=== PATIENT | female | born 1990 ===

== ENCOUNTER 2016-09-17 20:42 | Emergency (ER) | payer OTHER ==
--- NOTE | 2016-09-17 22:38 | ED ORDER SUMMARY ---
..... Patient: CHARMAINE NEWTON OrderSheet [facility] VisitID: [id number] [place] [address] 26y, F Registration Date/Time: 09/17/2016 ORDER SHEET Weight: 58.9 kg (estimated) Allergies: Vicodin GENERAL ORDERS: CBC w Diff Urgent (21:17 09/17/2016 MWinterer R.N. per protocol) (Ack 21:19 AMcQuoid ER Tech1) (21:19 AMcQuoid ER Tech1) CMP Urgent (21:17 09/17/2016 MWinterer R.N. per protocol) (Ack 21:19 AMcQuoid ER Tech1) (21:19 AMcQuoid ER Tech1) MEDICATION ORDERS: IV FLUIDS: ORDER SHEET NOTES: [Electronically signed by Elli Ashley MD (18:44 09/20/2016)] [Electronically signed by Jarod Doll R.N. (11:05 09/23/2016)] [Electronically locked/signed by Jarod Doll R.N. (11:05 09/23/2016)]
--- NOTE | 2016-09-17 22:38 | ED CLINICAL REPORT ---
Clinical Report - Physicians/Mid Levels [facility] [address] [place] [address] 09/17/2016 20:42 Patient: CHARMAINE NEWTON Time Seen: 21:14. Arrived- By private vehicle. Historian- patient. HISTORY OF PRESENT ILLNESS Chief Complaint: VAGINAL BLEEDING. This started 9 days ago (pt is 9 days post-) and still present but is improving. The symptoms are described as mild. Modifying factors. Not worsened by anything. Not relieved by anything. The patient has had abnormal bleeding. No abdominal pain, pelvic pain, vaginal pain, low back pain or flank pain. No pain with urination, urinary frequency or urgency of urination. Not sexually active. (Patient states she passed a clot about the size of a golf ball 3 or 4 days ago. She states that since then she has been having some bleeding but she cannot quantify how much. When asked to many pads she is using, she states does not know. Patient states that she did not receive any care because she drank alcohol throughout her . However she is now in treatment. Patient states she is bottle feeding her baby. Patient states she gave to the baby vaginally. She is not sure how far along she was in the baby was born because she did not receive care. Patient denies shortness of breath or dizziness. She does states she feels tired but she has been up at the baby a lot. Patient denies fevers or abdominal pain.). Denies current . Similar symptoms previously: None. Recent medical care: The patient was seen recently by a health care provider. ( Patient states she gave to her baby at [facility]. She was admitted for 2 days afterward. Patient states there were no complications with the or following.). REVIEW OF SYSTEMS No nausea, vomiting, diarrhea, black stools or headache. No fever, chills, anorexia, eye discomfort or sore throat. No cough, difficulty breathing, chest pain, skin rash or enlarged lymph nodes. No joint pain. All systems otherwise negative, except as recorded above. PAST HISTORY Problems: . CVA - Cerebrovascular Accident. Pelvic Inflammatory Disease. Immunizations. LNMP - Last Normal Menstrual Period. Additional Surgeries: . Medications: None. Allergies: Vicodin.(hives). SOCIAL HISTORY Smoker- current status unknown. Alcohol use. No drug use. ADDITIONAL NOTES The nursing notes have been reviewed. PHYSICAL EXAM Vital Signs: 09/17/2016 20:53 BP: 125/76. HR: 89. RR: 18. O2 saturation: 100%. Temp: 97.6 F. Pain level now: 11/14. Have been reviewed. Appearance: Alert. Oriented X3. No acute distress. HEENT: Normal external inspection. Neck: Neck supple. CVS: Heart sounds normal. Respiratory: No respiratory distress. Breath sounds normal. Abdomen: Soft and nontender. Back: Normal external inspection. No CVA tenderness. Skin: Skin warm and dry. Normal skin color. No rash. Normal skin turgor. Extremities: Extremities nontender. No lower extremity edema. Neuro: Mood/affect normal. No motor deficit. No sensory deficit. (Grossly oriented.). LABS, X-RAYS, AND EKG Pulse Oximetry: 09/17/2016 20:53 O2 saturation: 100%. (FIO2 - room air). Interpretation: normal. PROGRESS AND PROCEDURES Course of Care: I did discuss with the patient that her vaginal bleeding sounds normal considering that she is 9 days . Patient was hemodynamically stable in the emergency department. Patient counseled in person regarding the patient's stable condition and diagnosis. Old medical records reviewed. Disposition: Discharged. Condition: stable. CLINICAL IMPRESSION Moderate vaginal bleeding. (Post-). INSTRUCTIONS Drink plenty of fluids. (The bleeding you are describing is normal after giving . This will usually continue for 4-6 weeks, but gradually improve (though you may have occasional increases in bleeding). Your exam shows a moderate amount of blood, but no evidence of a concerning amount of blood loss.). Warnings: GENERAL WARNINGS: Return or contact your physician immediately if your condition worsens or changes unexpectedly, if not improving as expected, or if other problems arise. Follow-up: Follow up with your doctor as scheduled. Understanding of the discharge instructions verbalized by patient. (Electronically signed by Elli Ashley MD 09/20/2016 18:44)
--- NOTE | 2016-09-17 22:38 | ED NURSING NOTES ---
Clinical Report - Nurses [facility] [address] [place] [address] 09/17/2016 20:42 Patient: CHARMAINE NEWTON TRIAGE Acuity: LEVEL 3. Chief Complaint: VAGINAL BLEEDING. Alert. No acute distress. SEPSIS SCREEN: Sepsis Screen. Negative (no infection suspected/documented). --20:58 Luz Elena Gandhi R.N. 20:53 09/17/16. BP: 125/76. HR: 89. RR: 18. O2 saturation: 100% on room air. Temp: 97.6 F (oral). Pain level now: 11/14. --20:58 Luz Elena Gandhi R.N. Weight: 58.9 kg estimated. Height/Length: 61 inches Per Patient. BMI: 24.5. --20:57 Luz Elena Gandhi R.N. Medications None. --20:57 Luz Elena Gandhi R.N. Medication/allergy information source: the patient. --20:58 Luz Elena Gandhi R.N. Allergies Vicodin.(hives) --20:57 Luz Elena Gandhi R.N. History Arrived by private vehicle. Historian: patient. Accompanied by (sister in law dropped off). Onset. (4 days ago). ( Pt reports she had a baby on September 08, and had been passing clots since the 13 of September.). PAST MEDICAL HX: Immunizations: status is unknown. Last normal menstrual period- Jan 2016. SOCIAL HX: Current every day light tobacco smoker (cigarette)- less than 1/2 a pack per day. No alcohol use or drug use. FALL RISK ASSESSMENT: Fall risk assessment completed. No fall risk identified. NUTRITIONAL RISK ASSESSMENT: The nutritional risk assessment revealed no deficiencies. FUNCTIONAL ASSESSMENT: Functional assessment: no impairments noted. LEARNING NEEDS ASSESSMENT: The learning needs assessment revealed no barriers. SKIN INTEGRITY ASSESSMENT: Skin integrity risk assessment completed. No skin integrity risk identified. --20:58 Luz Elena Gandhi R.N. PROBLEMS: CVA - Cerebrovascular Accident. Fall. Contusion. Pelvic Inflammatory Disease. Abdominal Pain. Immunizations. --20:58 Luz Elena Gandhi R.N. ADDITIONAL SURGERIES: . --20:58 Luz Elena Gandhi R.N. Assessment GENERAL / NEURO / PSYCH: Alert. Oriented X 4. Appears in no acute distress. Patient appears calm and cooperative. RESPIRATORY: Respirations not labored. CVS: Capillary refill less than 2 seconds. GI / : Abdomen soft and nontender. SKIN: Mucous membranes are pink. Skin is warm and dry. --20:58 Luz Elena Gandhi R.N. Interventions ID band on patient. To treatment room. --20:58 Luz Elena Gandhi R.N. PHYSICAL ASSESSMENT 20:58 09/17/16. Ambulatory to room. GENERAL / NEURO / PSYCH: Alert. Oriented X 4. Appears in no acute distress. HEENT: No facial asymmetry noted. Mucous membranes are pink. RESPIRATORY: Respirations not labored. CVS: Capillary refill less than 2 seconds. Pulses within normal limits. GI / : Abdomen soft. SKIN: Skin intact. Skin is warm and dry. Normal skin turgor. --20:59 Luz Elena Gandhi R.N. NURSING PROGRESS NOTES 20:59 09/17/16. Patient gowned. Two patient identifiers checked. Call light placed in reach. Bed placed in lowest position. Brakes of bed on. Patient ready for evaluation- chart flagged and ED physician and PA notified. --20:59 Lzu Elena Gandhi R.N. 21:13 09/17/2016 Site #1 started via IV in the right forearm with an 20g angiocath, with aseptic technique and good blood return; one attempt. Blood drawn: rainbow set. Labeled in the presence of the patient and sent to the lab. Saline lock flushed with 10 mL saline. --21:18 Luz Elena Gandhi R.N. 22:32 09/17/16. Care transferred and report given (Janett ED RN). --22:32 Luz Elena Gandhi R.N. 22:37 09/17/16. Care transferred and report received (Luz Elena Campbell EDRN). --22:37 Jarod Doll R.N. PELVIC EXAM: Pelvic exam performed by ED physician. Assisted by one nurse. Preparation: pelvic tray; patient placed in lithotomy position. Procedure: speculum and bimanual exam. Light amount of dark vaginal bleeding noted with clots. No genital lesions noted. No vaginal discharge noted. No rectal exam performed. No specimens collected. Status post-procedure: she was stable. Total time of assist / procedure: 15 minutes. --22:37 Jarod Doll R.N. DISPOSITION / DISCHARGE 23:03 09/17/16. Departure time: 2300. Condition at departure: unchanged and stable. No learning barriers present. Discharge instructions provided and reviewed with the patient. Patient verbalized understanding. Written instructions provided in Yoruba. The patient was discharged by the physician. She was discharged home. She left the Emergency Department ambulatory and via private vehicle. Patient driving. --23:03 Jarod Doll R.N. 23:01 09/17/16. BP: 131/88. HR: 83. RR: 16. O2 saturation: 100% on room air. Pain level now 08/14. --23:03 Jarod Doll R.N. Locked/Released at 09/23/2016 11:05 by Jarod Doll R.N.
--- NOTE | 2016-09-17 22:38 | ED CLINICAL REPORT ---
Clinical Report - Physicians/Mid Levels [facility] [address] [place] [address] 09/17/2016 20:42 Patient: CHARMAINE NEWTON Time Seen: 21:14. Arrived- By private vehicle. Historian- patient. HISTORY OF PRESENT ILLNESS Chief Complaint: VAGINAL BLEEDING. This started 9 days ago (pt is 9 days post-) and still present but is improving. The symptoms are described as mild. Modifying factors. Not worsened by anything. Not relieved by anything. The patient has had abnormal bleeding. No abdominal pain, pelvic pain, vaginal pain, low back pain or flank pain. No pain with urination, urinary frequency or urgency of urination. Not sexually active. (Patient states she passed a clot about the size of a golf ball 3 or 4 days ago. She states that since then she has been having some bleeding but she cannot quantify how much. When asked to many pads she is using, she states does not know. Patient states that she did not receive any care because she drank alcohol throughout her . However she is now in treatment. Patient states she is bottle feeding her baby. Patient states she gave to the baby vaginally. She is not sure how far along she was in the baby was born because she did not receive care. Patient denies shortness of breath or dizziness. She does states she feels tired but she has been up at the baby a lot. Patient denies fevers or abdominal pain.). Denies current . Similar symptoms previously: None. Recent medical care: The patient was seen recently by a health care provider. ( Patient states she gave to her baby at [facility]. She was admitted for 2 days afterward. Patient states there were no complications with the or following.). REVIEW OF SYSTEMS No nausea, vomiting, diarrhea, black stools or headache. No fever, chills, anorexia, eye discomfort or sore throat. No cough, difficulty breathing, chest pain, skin rash or enlarged lymph nodes. No joint pain. All systems otherwise negative, except as recorded above. PAST HISTORY Problems: . CVA - Cerebrovascular Accident. Pelvic Inflammatory Disease. Immunizations. LNMP - Last Normal Menstrual Period. Additional Surgeries: . Medications: None. Allergies: Vicodin.(hives). SOCIAL HISTORY Smoker- current status unknown. Alcohol use. No drug use. ADDITIONAL NOTES The nursing notes have been reviewed. PHYSICAL EXAM Vital Signs: 09/17/2016 20:53 BP: 125/76. HR: 89. RR: 18. O2 saturation: 100%. Temp: 97.6 F. Pain level now: 11/14. Have been reviewed. Appearance: Alert. Oriented X3. No acute distress. HEENT: Normal external inspection. Neck: Neck supple. CVS: Heart sounds normal. Respiratory: No respiratory distress. Breath sounds normal. Abdomen: Soft and nontender. Back: Normal external inspection. No CVA tenderness. Skin: Skin warm and dry. Normal skin color. No rash. Normal skin turgor. Extremities: Extremities nontender. No lower extremity edema. Neuro: Mood/affect normal. No motor deficit. No sensory deficit. (Grossly oriented.). LABS, X-RAYS, AND EKG Pulse Oximetry: 09/17/2016 20:53 O2 saturation: 100%. (FIO2 - room air). Interpretation: normal. PROGRESS AND PROCEDURES Course of Care: I did discuss with the patient that her vaginal bleeding sounds normal considering that she is 9 days . Patient was hemodynamically stable in the emergency department. Patient counseled in person regarding the patient's stable condition and diagnosis. Old medical records reviewed. Disposition: Discharged. Condition: stable. CLINICAL IMPRESSION Moderate vaginal bleeding. (Post-). INSTRUCTIONS Drink plenty of fluids. (The bleeding you are describing is normal after giving . This will usually continue for 4-6 weeks, but gradually improve (though you may have occasional increases in bleeding). Your exam shows a moderate amount of blood, but no evidence of a concerning amount of blood loss.). Warnings: GENERAL WARNINGS: Return or contact your physician immediately if your condition worsens or changes unexpectedly, if not improving as expected, or if other problems arise. Follow-up: Follow up with your doctor as scheduled. Understanding of the discharge instructions verbalized by patient. (Electronically signed by Elli Ashley MD 09/20/2016 18:44)
--- NOTE | 2016-09-17 22:38 | ED ORDER SUMMARY ---
..... Patient: CHARMAINE NEWTON OrderSheet [facility] VisitID: [id number] [place] [address] 26y, F Registration Date/Time: 09/17/2016 ORDER SHEET Weight: 58.9 kg (estimated) Allergies: Vicodin GENERAL ORDERS: CBC w Diff Urgent (21:17 09/17/2016 MWinterer R.N. per protocol) (Ack 21:19 AMcQuoid ER Tech1) (21:19 AMcQuoid ER Tech1) CMP Urgent (21:17 09/17/2016 MWinterer R.N. per protocol) (Ack 21:19 AMcQuoid ER Tech1) (21:19 AMcQuoid ER Tech1) MEDICATION ORDERS: IV FLUIDS: ORDER SHEET NOTES: [Electronically signed by Elli Ashley MD (18:44 09/20/2016)] [Electronically signed by Jarod Doll R.N. (11:05 09/23/2016)] [Electronically locked/signed by Jarod Doll R.N. (11:05 09/23/2016)]
--- NOTE | 2016-09-23 11:05 | ED MAR SUMMARY ---
..... Medication Administration Record [facility] [address], [place] [id number] Patient: CHARMAINE NEWTON Visit ID: [id number] 26y, F Weight: 58.9 kg Height/Length: 61 in BMI: 24.5 ALLERGIES: Vicodin
--- NOTE | 2016-09-23 11:05 | ED DISCHARGE INSTRUCTIONS ---
Patient: HCARMAINE NEWTON General Instructions [facility] VisitID: [id number] [place] [address] 26y, F Registration Date/Time: 09/17/2016 Moderate vaginal bleeding. (Post-). INSTRUCTIONS Drink plenty of fluids. (The bleeding you are describing is normal after giving . This will usually continue for 4-6 weeks, but gradually improve (though you may have occasional increases in bleeding). Your exam shows a moderate amount of blood, but no evidence of a concerning amount of blood loss.). Warnings: GENERAL WARNINGS: Return or contact your physician immediately if your condition worsens or changes unexpectedly, if not improving as expected, or if other problems arise. Follow-up: Follow up with your doctor as scheduled. Understanding of the discharge instructions verbalized by patient. (Electronically signed by Elli Ashley MD 09/20/2016 18:44)
--- NOTE | 2016-09-23 11:05 | ED DISCHARGE INSTRUCTIONS ---
Patient: CHARMAINE NEWTON General Instructions [facility] VisitID: [id number] [place] [address] 26y, F Registration Date/Time: 09/17/2016 Moderate vaginal bleeding. (Post-). INSTRUCTIONS Drink plenty of fluids. (The bleeding you are describing is normal after giving . This will usually continue for 4-6 weeks, but gradually improve (though you may have occasional increases in bleeding). Your exam shows a moderate amount of blood, but no evidence of a concerning amount of blood loss.). Warnings: GENERAL WARNINGS: Return or contact your physician immediately if your condition worsens or changes unexpectedly, if not improving as expected, or if other problems arise. Follow-up: Follow up with your doctor as scheduled. Understanding of the discharge instructions verbalized by patient. (Electronically signed by Elli Ashley MD 09/20/2016 18:44)
--- NOTE | 2016-09-23 11:05 | ED MED RECONCILIATION SUMMARY ---
Patient: CHARMAINE NEWTON Medication Reconciliation Report [facility] VisitID: [id number] [address] [place] [address] 26y, F Registration Date/Time: 09/17/2016 Weight: 58.9 kg Height/Length: 61 in. BMI: 24.5 ALLERGIES: Vicodin The patient's Home Medications are listed below: NONE. The source(s) of the original Home Medication information: patient The following Medications were given to the patient in the Emergency Department: None. The following Medications were prescribed to the patient: None.
--- NOTE | 2016-09-23 11:05 | ED MAR SUMMARY ---
..... Medication Administration Record [facility] [address] [place], [place] [id number] Patient: CHARMAINE NEWTON Visit ID: [id number] 26y, F Weight: 58.9 kg Height/Length: 61 in BMI: 24.5 ALLERGIES: Vicodin
--- NOTE | 2016-09-23 11:05 | ED MED RECONCILIATION SUMMARY ---
Patient: CHARMAINE NEWTON Medication Reconciliation Report [facility] VisitID: [id number] [address] [place] [address] 26y, F Registration Date/Time: 09/17/2016 Weight: 58.9 kg Height/Length: 61 in. BMI: 24.5 ALLERGIES: Vicodin The patient's Home Medications are listed below: NONE. The source(s) of the original Home Medication information: patient The following Medications were given to the patient in the Emergency Department: None. The following Medications were prescribed to the patient: None.
== END 2016-09-17 23:00 | disposition home or self-care (01) ==
LOC: ED SRH 20:42
DX: N93.8 Other specified abnormal uterine and vaginal bleeding (principal); Z86.73 Personal history of transient ischemic attack (TIA), and cerebral infarction without residual deficits; Z88.5 Allergy status to narcotic agent
CPT/HCPCS: 90100; 95059